=== PATIENT | female | born 1980 | race Hispanic/Latino ===

== ENCOUNTER 2020-10-28 17:25 | Inpatient (IN) | payer BC ==
[2020-10-28 18:06] VITALS: BMI 40.9
[2020-10-28 18:45] LABS: Fetal Membranes Rupture No Membranes Rupture (No Rupture)
[2020-10-28] MEDS ORDERED: hydrALAZINE 20 MG/ML VIAL SLOW IVP PRN (18:53)
[2020-10-29] MEDS ORDERED: Ondansetron PF 4 MG/2 ML Vial IVP PRN ×3 (00:38→15:03)
[2020-10-29] MEDS ORDERED: hydrALAZINE 20 MG/ML VIAL SLOW IVP PRN ×2 (00:38→15:03)
[2020-10-29] MEDS ORDERED: Promethazine HCl 25 MG/ML VIAL IM PRN ×3 (00:38→15:03)
[2020-10-29] MEDS: Lactated Ringer's 1,000 ML IV SCH ×2 (01:00→09:05)
[2020-10-29 01:16] LABS: Hemoglobin 11.3 g/dL (12.0-15.5); Mean Corpuscular HGB CONC 33.9 g/dL (32.0-36.0); Mean Corpuscular Hemoglobin 28.7 pg (27.0-33.0); Mean Corpuscular Volume 84.5 fl (81.6-98.3); Platelet Count 250 10x3/uL (150-450); RBC Distribution Width 14.3 % (11.5-14.5); Red Blood Cell (RBC) Count 3.94 10x6/uL (3.90-5.03); White Blood Cell (WBC) Count 11.7 10x3/uL (3.5-10.5)
[2020-10-29 01:43] LABS: Syphilis Antibody Nonreactive (Nonreactive); Syphilis Antibody Index 0.02 S/CO (<1.00 Non-Reactive)
[2020-10-29 01:44] LABS: Hep B Surf Ag Non-Reactive S/CO (NonReactive)
[2020-10-29 01:51] LABS: HBSAg Index 0.15 S/CO (0-0.99)
[2020-10-29] MEDS ORDERED: Famotidine/PF 20 mg/2ml Vial SLOW IVP PRN (11:04)
[2020-10-29] MEDS ORDERED: Bicitra 30 ML UDCUP PO PRN (11:04)
[2020-10-29] MEDS ORDERED: CEFAZOLIN 2 GM in Premix Bag 1 BAG IVPB SCH (11:15)
[2020-10-29] MEDS ORDERED: Methylergonovine 0.2 MG/ML VIAL ONE (11:22)
[2020-10-29] MEDS ORDERED: Misoprostol 200 MCG TAB ONE (11:22)
[2020-10-29] MEDS ORDERED: Carboprost 250 MCG/ML AMP ONE (11:22)
[2020-10-29] MEDS ORDERED: PHENYLEPHRINE-NS 100 MCG/ML 10 ML SYRINGE ONE (11:40)
[2020-10-29] MEDS ORDERED: Morphine PF 10 MG/10 ML VIAL ONE (11:40)
[2020-10-29] MEDS ORDERED: Phenylephrine 40 MG/NS 250 ML 250 ML ONE (11:40)
[2020-10-29] MEDS ORDERED: Oxytocin 10 UNITS/ML VIAL ONE ×2 (11:40→12:35)
[2020-10-29] MEDS ORDERED: Ondansetron PF 4 MG/2 ML Vial ONE (12:31)
[2020-10-29] MEDS ORDERED: Metoclopramide HCl 10 MG/2 ML VIAL ONE (12:31)
[2020-10-29] MEDS ORDERED: HYDROmorphone 2 MG/ML VIAL SLOW IVP PRN (12:58)
[2020-10-29] MEDS ORDERED: Naloxone HCl 0.4 mg/ml Vial IV PRN (12:58)
[2020-10-29] MEDS ORDERED: diphenhydrAMINE 50 MG/ML VIAL IVP PRN (12:58)
[2020-10-29] MEDS ORDERED: Meperidine HCl/PF 25 MG/ML VIAL SLOW IVP PRN (12:58)
[2020-10-29] MEDS ORDERED: Ondansetron HCl/PF 4 MG/2 ML Vial IVP PRN (12:58)
[2020-10-29] MEDS ORDERED: L&D-Morphine 4 MG/ML VIAL SLOW IVP PRN (12:58)
[2020-10-29] MEDS ORDERED: Hydrocerin (Eucerin) Cream 120 gm Jar TOP PRN (12:58)
[2020-10-29] MEDS ORDERED: Promethazine HCl 25 MG SUPP PR PRN (12:58)
[2020-10-29] MEDS ORDERED: Naloxone HCl 0.4 mg/ml Vial IVP PRN ×2 (12:58)
[2020-10-29] MEDS ORDERED: Ketorolac Tromethamine 30 MG/ML VIAL IVP SCH (13:00)
[2020-10-29] MEDS ORDERED: Communication Order-Pharmacy FS SCH (13:00)
[2020-10-29] MEDS: Ketorolac Tromethamine 30 MG/ML VIAL IVP PRN ×2 (14:19→23:36)
[2020-10-29 14:36] LABS: SARS-CoV-2 PCR by NAA Not Detected (NotDetected)
[2020-10-29] MEDS ORDERED: Meperidine HCl/PF 25 MG/ML VIAL ONE (14:46)
[2020-10-29] MEDS ORDERED: diphenhydrAMINE 25 MG CAP PO PRN (15:03)
[2020-10-29] MEDS ORDERED: HYDROcodone/Acetaminophen 5/325 mg Tablet PO PRN ×2 (15:03)
[2020-10-29] MEDS ORDERED: Bisacodyl 10 MG SUPP PR PRN (15:03)
[2020-10-29] MEDS ORDERED: Lanolin Ointment 7 GM TUBE TOP PRN (15:03)
[2020-10-29] MEDS ORDERED: Boostrix 0.5 ML (Tdap) VIAL IM ONE (15:03)
[2020-10-29] MEDS ORDERED: Acetaminophen 325 MG TAB PO PRN (15:03)
[2020-10-30] MEDS: Docusate Calcium (SURFAK) 240 MG CAP PO SCH ×3 (04:36→20:43)
[2020-10-30] MEDS: Ferrous Sulfate 325 MG TAB PO SCH ×3 (04:36→21:11)
[2020-10-30] MEDS: Prenatal Vitamin 1 TAB PO SCH (08:44)
[2020-10-30] MEDS: HYDROcodone/Acetaminophen 5/325 mg Tablet PO PRN ×3 (08:44→20:42)
[2020-10-30] MEDS: Simethicone Chewable 80 MG TAB PO PRN ×2 (08:46→13:11)
[2020-10-30 12:06] LABS: Hemoglobin 10.1 g/dL (12.0-15.5); Mean Corpuscular HGB CONC 34.1 g/dL (32.0-36.0); Mean Corpuscular Hemoglobin 28.3 pg (27.0-33.0); Mean Corpuscular Volume 82.9 fl (81.6-98.3); Mean Platelet Volume 9.8 fl (7.4-10.4); Platelet Count 245 10x3/uL (150-450); RBC Distribution Width 14.7 % (11.5-14.5); Red Blood Cell (RBC) Count 3.57 10x6/uL (3.90-5.03)
[2020-10-30] MEDS: Ibuprofen 800 MG TAB PO SCH ×2 (13:50→20:46)
[2020-10-31] MEDS: HYDROcodone/Acetaminophen 5/325 mg Tablet PO PRN ×3 (02:28→11:56)
[2020-10-31] MEDS: Ibuprofen 800 MG TAB PO SCH (05:29)
[2020-10-31] MEDS: Simethicone Chewable 80 MG TAB PO PRN (05:34)
[2020-10-31 07:48] VITALS: TEMP 98.6
[2020-10-31] MEDS: Prenatal Vitamin 1 TAB PO SCH (08:41)
[2020-10-31] MEDS: Docusate Calcium (SURFAK) 240 MG CAP PO SCH (08:41)
[2020-10-31] MEDS: Ferrous Sulfate 325 MG TAB PO SCH (08:41)
[2020-10-31 11:46] VITALS: BP 109/59
== END 2020-10-31 13:15 | disposition home or self-care (01) | DRG 787 ==
LOC: CSHLD/OP 17:25 → CSHLD 23:28 → UNDOADMIN 23:28 → CSHLD 10-29 00:39 → CSHPP 10-29 15:20
PROVIDERS: ADMIT Obstetrics & Gynecology; ATTEND Obstetrics & Gynecology
PROC: 10D00Z1 Extraction of Products of Conception, Low, Open Approach (ICD-10-PCS; principal; 2020-10-29)
DX: O32.1XX0 Maternal care for breech presentation, not applicable or unspecified (principal); O41.03X0 Oligohydramnios, third trimester, not applicable or unspecified; Z37.0 Single live birth; Z3A.39 39 weeks gestation of pregnancy
CPT/HCPCS: 36415; 51702; 76815; 84112; 85027; 86780; 86850; 86900; 86901; 87340; 99285; J0690; J1885; J2175; J2274; J2405; J2765; S0028; U0003; U0005